=== PATIENT | female | born 1980 | race Hispanic/Latino ===

== ENCOUNTER 2023-03-31 14:09 | Emergency (ER) | payer OTHER ==
[2023-03-31 15:28] VITALS: BP 149/89
[2023-03-31] MEDS ORDERED: ORPHENADRINE CITRATE 30 MG/ML AMP IM ONE (16:45)
[2023-03-31] MEDS ORDERED: KETOROLAC TROMETHAMINE 30 MG/ML SDV IM ONE (16:45)
[2023-03-31] MEDS ORDERED: NAPROXEN500 MG PO (16:49)
[2023-03-31 17:24] VITALS: BP 136/95
== END 2023-03-31 17:25 | disposition home or self-care (01) | DRG 605 ==
LOC: ED 14:09
PROC: 0HQ1XZZ Repair Face Skin, External Approach (ICD-10-PCS; principal; 2023-03-31)
DX: S01.81XA Laceration without foreign body of other part of head, initial encounter (principal); S60.221A Contusion of right hand, initial encounter; W22.8XXA Striking against or struck by other objects, initial encounter; Y92.79 Other farm location as the place of occurrence of the external cause; Y99.0 Civilian activity done for income or pay; E11.9 Type 2 diabetes mellitus without complications